=== PATIENT | female | born 1955 | race Caucasian/White ===

== ENCOUNTER → 2017-03-05 | Outpatient (CLI) | payer MEDICARE, OTHER ==
--- NOTE | 2017-03-05 12:50 | KCIC ---
MRI of the lumbar spine without contrast 03/05/2017 CLINICAL HISTORY: Low back pain which radiates down the left leg. TECHNIQUE: Unenhanced T1-weighted and T2-weighted sagittal and axial and inversion recovery sagittal images of the lumbar spine were obtained. FINDINGS: Mild to moderate S-shaped curvature of the thoracolumbar spine is seen. Moderate anterolisthesis of L5 in relation to S1 is noted. Degenerative signal changes and loss of height are seen involving all the disks of the lumbar spine. Degenerative signal changes are seen within the marrow surrounding these discs. The patient is status post left hemilaminectomy and posterolateral fusion using pedicle screws and stabilizing rods at L4-5 and L5-S1. The conus medullaris is normal morphology, position, and signal characteristics. At the L1-2 disc space there is a mild to moderate generalized disc bulge. This is eccentric to the right. Superimposed on this disc bulge is a central/right paracentral focal disc herniation which extrudes inferiorly. This measures 5 mm in AP diameter. Degenerative changes are seen involving the facet joints bilaterally. There is mild to moderate ligamentum flavum hypertrophy. These findings when combined result in mild right greater than left central spinal canal stenosis. No neural foraminal stenosis is seen. At the L2-3 disc space there is a moderate generalized disc bulge. This is eccentric to the right. Superimposed on this disc bulge is a right paracentral focal disc protrusion. This measures 4 mm in AP diameter. Degenerative changes are seen involving the facet joints bilaterally. There is mild ligamentum flavum hypertrophy. These findings when combined result in mild right-sided central spinal canal stenosis. No neural foraminal stenosis is seen. At the L3-4 disc space there is a mild to moderate generalized disc bulge. Degenerative changes are seen involving the facet joints bilaterally. There is mild to moderate ligamentum flavum hypertrophy. These findings do not result in significant central spinal canal or neural foraminal stenosis. At the L4-5 disc space there is a mild generalized disc bulge. Degenerative changes are seen involving the facet joints bilaterally. There is mild right ligamentum flavum hypertrophy. These findings when combined do not result in significant central spinal canal or neural foraminal stenosis. At the L5-S1 disc space is a moderate generalized disc bulge. Degenerative changes are seen involving the facet joints, left greater than right. These findings when combined do not result in significant central spinal canal stenosis. Moderate to severe left greater than right neural foraminal stenosis is seen. IMPRESSION: 1. Status post left hemilaminectomy and posterolateral fusion at L4-5 and L5-S1. 2. The changes of degenerative disc disease are seen involving the lumbar spine. These findings result in mild right greater than left central spinal canal stenosis at L1-2 and mild right-sided central spinal canal stenosis at L2-3. Moderate to severe left greater than right neural foraminal stenosis is seen at L5-S1. Electronically signed by: Pierce Vazquez MD (03/05/2017 12:47 PM) [id number]
== END | disposition home or self-care (01) ==
LOC: KCIC MRI 07:54
PROVIDERS: ATTEND Anesthesiology Pain Medicine
DX: M51.36 Other intervertebral disc degeneration, lumbar region (principal); M48.06 Spinal stenosis, lumbar region; M99.53 Intervertebral disc stenosis of neural canal of lumbar region
CPT/HCPCS: 72148